=== PATIENT | female | born 1980 | race Caucasian/White ===

== ENCOUNTER 2018-10-12 09:35 | Day surgery (SDC) | payer BC ==
--- NOTE | 2018-10-07 16:41 | RAD REPORT ---
EXAM DESCRIPTION: RAD - Chest Pa And Lat (2 Views) - 10/07/2018 4:28 pm CLINICAL HISTORY: preop Chest pain. COMPARISON: No comparisons FINDINGS: The lungs are clear. The heart is normal in size. No displaced fractures. IMPRESSION: No acute or concerning finding suspected.
[2018-10-07 16:43] LABS: Absolute Lymphocytes (CBC) 2.4 K/uL (0.7-4.9); Absolute Monocytes 0.7 K/uL (0.1-1.3); Absolute Neutrophil 5.9 K/uL (1.8-8.0); Basophils % 1.3 % (0-1.3); Eosinophils % 2.1 % (0-4.4); Hematocrit 41.9 % (36.0-45.0); Lymphocytes % 26.1 % (15.3-44.8); MPV 9.9 fL (7.6-11.3); Monocytes % 7.1 % (3.3-12.3)
--- NOTE | 2018-10-07 16:44 | EKG ---
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
[2018-10-12] MEDS ORDERED: Ringers Lactate 1,000 ML IV ONE (10:12)
--- NOTE | 2018-10-12 10:19 | P.OBGYNHP ---
Certification for Inpatient Patient will require the following post-hospital care: None Practitioner: I am a practitioner with admitting privileges, knowledge of patient current condition, hospital course, and medical plan of care. Services: Services provided to patient in accordance with Admission requirements found in Title 42 Section 412.3 of the Code of Federal Regulations Patient History Date of Service: 10/12/18 Reason for admission: D&C hysteroscopy & endometrial ablation (novasure) History of Present Illness: Patient is a 38 y/o LMP 09/30/2018 who presents for heavy bleeding. She states that her menstrual cycle so heavy. Patient is also c/o painful menses. Patient has been evaluated for and has requested to have endometrial ablation done. Ultrasound and endometrial biopsy were performed and were normal. Allergies No Known Allergies Allergy (Verified 10/07/18 16:12) Home Medications: ALPRAZolam [Alprazolam] 0.5 mg PO DAILY 01/23/17 Sertraline [Zoloft*] 50 mg PO DAILY 01/23/17 Thyroid Tab [[place] Thyroid*] 60 mg PO DAILY 01/23/17 Lisinopril [Prinivil*] 5 mg PO [id number] 10/07/18 hydroCHLOROthiazide [Hydrochlorothiazide*] 12.5 mg PO DAILY 10/07/18 - Past Medical/Surgical History Diabetic: No -: HTN -: Hypothyroidism -: Anxiety -: PTSD -: Rectal tear -: Obesity -: D&C -: Breast Implants -: Tubal ligation Psychosocial/ Personal History: She is 4 years, she has 5 children. 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 - Family History Father -: Heart disease, Hypertension, Stroke Mother -: Hypertension, Diabetes, Cancer Notes: non-hodgkins lymphoma Brother -: Hypertension Sister -: Hypertension - Social History Alcohol use: No CD- Drugs: No Caffeine use: Yes Physical Examination - General General: Alert, Oriented x3 HEENT: Atraumatic Neck: Supple Respiratory: Normal air movement Cardiovascular: No edema, Normal pulses Gastrointestinal: Normal bowel sounds, Soft and benign Musculoskeletal: No clubbing, No swelling Integumentary: No rashes Neurological: Normal gait, Normal speech - Female Pelvic External genitalia: Normal Vagina: Normal, [place], Moist, Smooth Cervix: Normal, Non-tender, No discharge Uterus: Non-gravid, Smooth contour, Mobile Adnexa: Normal, Non-tender Imagings Data: COMPARISON: Pelvic ultrasound August 2017 TECHNIQUE: Endovaginal sonography was performed. FINDINGS: Nabothian cysts in the cervix are noted and similar to the comparison 1 year earlier. There is a coarsened, increased echogenicity of the myometrium similar to the prior study. No myometrial mass identifiable. Homogeneous endometrial tissue is identifiable up to 9 mm in maximum thickness. No endometrial mass or polyp identified. The endometrium - myometrium interface is normal. Uterus is 8.7 x 5.3 x 6.2 cm. A 2.7 centimeter right ovarian cyst is present. No suspicious characteristics seen. No right adnexal mass identified. Left ovary could not be visualized. No left adnexal mass. No blood or fluid in the cul-de-sac. IMPRESSION: No uterine abnormality identified. No significant change from 1 year earlier. A right ovarian 2.7 cm cyst identified with no suspicious characteristics. No right adnexal abnormality. Nonvisualization of the left ovary with no left adnexal abnormality seen. Assessment and Plan - Plan 38 y/o LMP 09/30/2018 who has menorrhagia. Plan is to perform D&C hysteroscopy and novasure endometrial ablation. - Advance Directives Does patient have a Living Will: No Does patient have a Durable POA for Healthcare: No
[2018-10-12] MEDS ORDERED: FENTANYL CITR 100 MCG/2 ML ONE (10:39)
[2018-10-12] MEDS ORDERED: LIDOCAINE 1% MPF 5 ML VIAL ONE (10:39)
[2018-10-12] MEDS ORDERED: MIDAZOLAM HCL 2 MG/2 ML INJ ONE (10:39)
[2018-10-12] MEDS ORDERED: PROPOFOL 200 MG/20 ML VIAL IV ONE (10:39)
[2018-10-12] MEDS ORDERED: SILVER NITRATE 1 APPL TOP ONE ×2 (10:47→11:51)
[2018-10-12] MEDS ORDERED: DEXAMETHASONE 4 MG/ML VIAL ONE (11:21)
[2018-10-12] MEDS ORDERED: ONDANSETRON 4 MG/2 ML VIAL ONE (11:22)
[2018-10-12] MEDS ORDERED: KETOROLAC 30 MG/ML INJ ONE (11:22)
[2018-10-12] MEDS ORDERED: ONDANSETRON 4 MG (ODT) TAB PO PRN (11:38)
[2018-10-12] MEDS ORDERED: IBUPROFEN 400 MG TAB PO PRN (11:38)
[2018-10-12] MEDS ORDERED: KETOROLAC 30 MG/ML INJ IV PRN (11:38)
--- NOTE | 2018-10-12 11:38 | P.OP ---
Measurement Operator: NONE,NONE Preoperative diagnosis: abnormal uterine bleeding Postoperative diagnosis: same Primary procedure: D&C, hysteroscopy, endometrial ablation Secondary procedure: none Anesthesia: General Estimated blood loss: none Specimen: endometrial curettings Operative Technique: The patient was taken to the operating room, where general anesthesia was found to be adequate. She was prepped and draped in the usual sterile fashion. A speculum was placed into the vagina. The anterior lip of the cervix was grasped with a single-tooth tenaculum, The cervix was minimally dilated with #17 Hanks dilator. The 5-mm 30-degree hysteroscope was then inserted under direct visualization using lactated Ringer' s as a distention medium. The uterine cavity was viewed and fluffy white endometrium was seen without masses. The hysteroscope was then removed and the NovaSure ablation was performed. The uterus was then sounded to 8cm. Width was set at 4.5 cm. Power was at 161 and the full cycle was 52 seconds. After the cycle was complete, the device was withdrawn. The tenaculum was removed. Bleeding was controlled with silver nitrite and pressure. The patient was then awakened, transferred, and taken to the recovery room in satisfactory condition. Complications: None Transferred to: Recovery Room Condition: Good
[2018-10-12] MEDS ORDERED: PROMETHAZINE 25 MG/ML VIAL ONE (11:57)
[2018-10-12] MEDS ORDERED: ALBUTEROL INHALER 60 PUFF/8 GM IH ONE (11:57)
[2018-10-12] MEDS ORDERED: MEPERIDINE HCL 25 MG/0.5 ML ONE (11:57)
== END 2018-10-12 14:20 | disposition home or self-care (01) ==
LOC: OR 09:35
PROVIDERS: ATTEND Student in an Organized Health Care Education/Training Program
PROC: 0U5B8ZZ Destruction of Endometrium, Via Natural or Artificial Opening Endoscopic (ICD-10-PCS; principal; 2018-10-12 10:45)
PROC: 0UDB8ZX Extraction of Endometrium, Via Natural or Artificial Opening Endoscopic, Diagnostic (ICD-10-PCS; 2018-10-12 10:45)
DX: N92.0 Excessive and frequent menstruation with regular cycle (principal); E28.2 Polycystic ovarian syndrome; E03.9 Hypothyroidism, unspecified; I10 Essential (primary) hypertension; F41.9 Anxiety disorder, unspecified; F32.9 Major depressive disorder, single episode, unspecified; F43.10 Post-traumatic stress disorder, unspecified; Z79.899 Other long term (current) drug therapy
CPT/HCPCS: 36415; 71046; 81025; 85025; 86850; 86900; 86901; 88305; 93005; J2175; J2250; J2405; J2550; J2704; J3010

== ENCOUNTER 2018-10-18 14:55 | Emergency (ER) | payer BC ==
[2018-10-18] MEDS ORDERED: NA CHLORIDE 0.9% 1,000 ML ONE (16:13)
--- NOTE | 2018-10-18 16:29 | RAD REPORT ---
EXAM DESCRIPTION: Abdullahi Dunbar (2 Views)10/18/2018 4:18 pm CLINICAL HISTORY: Cough COMPARISON: October 07, 2018 FINDINGS: The lungs appear clear of acute infiltrate. The heart is normal size IMPRESSION: No acute abnormalities displayed
[2018-10-18 16:46] LABS: Absolute Lymphocytes (CBC) 2.8 K/uL (0.7-4.9); Absolute Monocytes 0.6 K/uL (0.1-1.3); Absolute Neutrophil 8.8 K/uL (1.8-8.0); Basophils % 0.8 % (0-1.3); Eosinophils % 1.6 % (0-4.4); Hematocrit 46.3 % (36.0-45.0); MPV 10.6 fL (7.6-11.3); Monocytes % 5.1 % (3.3-12.3); RBC Red Blood Cell Count 4.86 M/uL (3.86-4.86)
[2018-10-18 17:01] LABS: Albumin 3.8 g/dL (3.4-5.0); Bilirubin Total 0.4 mg/dL (0.2-1.0); Potassium 3.9 mmol/L (3.5-5.1); Protein, Total 7.6 g/dL (6.4-8.2)
--- NOTE | 2018-10-18 17:14 | EDPHYS ---
Physician Documentation [facility] Name: Kristin Haines Age: 38 yrs Sex: Female : 1980 Arrival Date: 10/18/2018 Time: 14:56 Bed 5 Private MD: Virginia Agrawal ED Physician Gerardo Zhang HPI: 10/18 15:29 This 38 yrs old Female presents to ER via Unassigned with complaints of angelina Nausea, Dizziness, InQuicker. 15:29 The patient presents to the emergency department with nausea. Onset: The angelina symptoms/episode began/occurred 5 day(s) ago. Possible causes: unknown. The symptoms are aggravated by nothing. Associated signs and symptoms: The patient has no apparent associated signs or symptoms. Severity of symptoms: At their worst the symptoms were moderate in the emergency department the symptoms are unchanged. The patient has not experienced similar symptoms in the past. 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 - Social history:: Smoking status: Patient/guardian denies using tobacco. - Ebola Screening: : Patient negative for fever greater than or equal to 101.5 degrees Fahrenheit, and additional compatible Ebola Virus Disease symptoms Patient denies exposure to infectious person Patient denies travel to an Ebola-affected area in the 21 days before illness onset No symptoms or risks identified at this time. - Family history:: not pertinent. ROS: 15:29 Constitutional: Negative for fever, chills, and weight loss, Eyes: Negative for injury, angelina pain, redness, and discharge, ENT: Negative for injury, pain, and discharge, Neck: Negative for injury, pain, and swelling, Cardiovascular: Negative for chest pain, palpitations, and edema, Respiratory: Negative for shortness of breath, cough, wheezing, and pleuritic chest pain, Abdomen/GI: Negative for abdominal pain, nausea, vomiting, diarrhea, and constipation, Back: Negative for injury and pain, : Negative for injury, bleeding, discharge, and swelling, MS/Extremity: Negative for injury and deformity, Skin: Negative for injury, rash, and discoloration, Psych: Negative for depression, anxiety, suicide ideation, homicidal ideation, and hallucinations, Allergy/Immunology: Negative for hives, rash, and allergies, Endocrine: Negative for neck swelling, polydipsia, polyuria, polyphagia, and marked weight changes, Hematologic/Lymphatic: Negative for swollen nodes, abnormal bleeding, and unusual bruising. 15:29 Neuro: Positive for dizziness, weakness. Exam: 15:29 Constitutional: This is a well developed, well nourished patient who is awake, alert, angelina and in no acute distress. Head/Face: Normocephalic, atraumatic. Eyes: Pupils equal round and reactive to light, extra-ocular motions intact. Lids and lashes normal. Conjunctiva and sclera are non-icteric and not injected. Cornea within normal limits. Periorbital areas with no swelling, redness, or edema. ENT: Nares patent. No nasal discharge, no septal abnormalities noted. Tympanic membranes are normal and external auditory canals are clear. Oropharynx with no redness, swelling, or masses, exudates, or evidence of obstruction, uvula midline. Mucous membranes moist. Neck: Trachea midline, no thyromegaly or masses palpated, and no cervical lymphadenopathy. Supple, full range of motion without nuchal rigidity, or vertebral point tenderness. No Meningismus. Chest/axilla: Normal chest wall appearance and motion. Nontender with no deformity. No lesions are appreciated. Cardiovascular: Regular rate and rhythm with a normal S1 and S2. No gallops, murmurs, or rubs. Normal PMI, no JVD. No pulse deficits. Respiratory: Lungs have equal breath sounds bilaterally, clear to auscultation and percussion. No rales, rhonchi or wheezes noted. No increased work of breathing, no retractions or nasal flaring. Abdomen/GI: Soft, non-tender, with normal bowel sounds. No distension or tympany. No guarding or rebound. No evidence of tenderness throughout. Back: No spinal tenderness. No costovertebral tenderness. Full range of motion. Female : Normal external genitalia. Skin: Warm, dry with normal turgor. Normal color with no rashes, no lesions, and no evidence of cellulitis. MS/ Extremity: Pulses equal, no cyanosis. Neurovascular intact. Full, normal range of motion. Neuro: Awake and alert, GCS 15, oriented to person, place, time, and situation. Cranial nerves II-XII grossly intact. Motor strength 5/5 in all extremities. Sensory grossly intact. Cerebellar exam normal. Normal gait. Psych: Awake, alert, with orientation to person, place and time. Behavior, mood, and affect are within normal limits. 15:31 Musculoskeletal/extremity: DVT Exam: No signs of deep vein thrombosis. no pain, no angelina swelling, no tenderness, negative Homans' sign noted on exam, no appreciated bluish discoloration, no erythema, no increased warmth. Vital Signs: 15:24 BP 151 / 98; Pulse 67; Resp 16; Temp 98.8; Pulse Ox 99% on R/A; Weight 69.85 kg; Height ch 5 ft. 5 in. (165.10 cm); Pain 0/10; 15:30 BP 134 / 84 LA Supine (auto/reg); Pulse 67; ch 15:32 BP 126 / 86 LA Sitting (auto/reg); Pulse 77; ch 15:34 BP 130 / 87 LA Standing (auto/reg); Pulse 75; ch 16:30 BP 124 / 78; Pulse 64; Resp 16; Pulse Ox 98% on R/A; Pain 0/10; ch 17:25 BP 127 / 75; Pulse 58; Resp 16; Temp 98.8; Pulse Ox 99% on R/A; Pain 0/10; ch 15:24 Body Mass Index 25.63 (69.85 kg, 165.10 cm) MDM: 15:[address] [facility] 15:[address] Patient medically screened[address] [facility] 15:29 Data reviewed: vital signs, nurses notes, lab test result(s), radiologic studies, plain angelina films. 10/18 15:29 Order name: CBC with Diff; Complete Time: 17:[address] [facility] 10/18 15:29 Order name: Comprehensive Metabolic Panel; Complete Time: 17:[address] [facility] 10/18 15:29 Order name: Blood Culture Adult (2) [facility] 10/18 15:29 Order name: Urine Culture [facility] 10/18 15:29 Order name: Procalcitonin; Complete Time: 17:[address] [facility] 10/18 15:29 Order name: Flu [facility] 10/18 15:29 Order name: Urine Dipstick-Ancillary (obtain specimen); Complete Time: 16:[address] [facility] 10/18 15:29 Order name: Chest Pa And Lat (2 Views) XRAY; Complete Time: 16:[address] [facility] 10/18 16:22 Order name: Urine Dipstick--Ancillary (enter results) nm 10/18 17:14 Order name: Orthostatics; Complete Time: 17:[address] [facility] Administered Medications: 16:10 Drug: NS 0.9% 1000 ml Route: IV; Rate: 1 bolus; Site: right antecubital; 17:00 Follow up: IV Status: Completed infusion; IV Intake: 1000ml 17:33 Drug: Rocephin - (cefTRIAXone) 1 grams Route: IVPB; Infused Over: 30 mins; Site: right sg antecubital; 17:44 Follow up: IV Status: Completed infusion; IV Intake: 10ml Disposition: 10/18/18 17:13 Discharged to Home. Impression: Nausea, Weakness, Dizziness and giddiness, Elevated white blood cell count. - Condition is Stable. - Discharge Instructions: Dizziness, Nausea and Vomiting, Adult, Nausea, Adult, Weakness, Fatigue, Weakness, [id number], Dizziness, [id number]. - Prescriptions for Zofran 4 mg Oral Tablet - take 1 tablet by ORAL route every 12 hours As needed; 14 tablet. Doxycycline Hyclate 100 mg Oral Tablet - take 1 tablet by ORAL route every 12 hours; 14 tablet. - Medication Reconciliation Form, Thank You Letter, Antibiotic Education, Prescription Opioid Use form. - Follow up: Mini Rekhi; When: 1 - 2 days; Reason: Recheck today's complaints, Continuance of care, Re-evaluation by your physician. - Problem is new. - Symptoms have improved. Signatures: Dispatcher [employer] Luz Casas RN RN Cristiano Pang RN RN Gerardo Dhaliwal MD MD cha Corrections: (The following items were deleted from the chart) 17:45 17:13 10/18/2018 17:13 Discharged to Home. Impression: Nausea; Weakness; Dizziness and ch giddiness; Elevated white blood cell count. Condition is Stable. Discharge Instructions: Dizziness, Nausea and Vomiting, Adult, Nausea, Adult, Weakness, Fatigue, Weakness, [id number], Dizziness, [id number]. Prescriptions for Zofran 4 mg Oral Tablet - take 1 tablet by ORAL route every 12 hours As needed; 14 tablet. and Forms are Medication Reconciliation Form, Thank You Letter, Antibiotic Education, Prescription Opioid Use. Follow up: Virginia Agrawal; When: 1 - 2 days; Reason: Recheck today's complaints, Continuance of care, Re-evaluation by your physician. Problem is new. Symptoms have improved. angelina
--- NOTE | 2018-10-18 17:14 | ER ---
Nurse's Notes [facility] Name: Kristin Haines Age: 38 yrs Sex: Female : 1980 Arrival Date: 10/18/2018 Time: 14:56 Bed 5 Private MD: Virginia Agrawal Diagnosis: Nausea;Weakness;Dizziness and giddiness;Elevated white blood cell count Presentation: 10/18 15:10 Presenting complaint: Patient states: Reports having Uterine ablation surgery with sg , reports has been having weakness and body aches as well as pelvic pain, reports N/V/D/ unsure if any fever. 15:10 Method Of Arrival: Ambulatory sg 15:10 Transition of care: patient was not received from another setting of care. Onset of sg symptoms was October 18, 2018. Risk Assessment: Do you want to hurt yourself or someone else? Patient reports no desire to harm self or others. Initial Sepsis Screen: Does the patient meet any 2 criteria? No. Patient's initial sepsis screen is negative. Does the patient have a suspected source of infection? No. Patient's initial sepsis screen is negative. Care prior to arrival: None. 16:09 Acuity: MATT 3 sg Triage Assessment: 15:24 General: Appears in no apparent distress. uncomfortable, Behavior is calm, cooperative, ch appropriate for age. Pain: Denies pain. Neuro: No deficits noted. Neuro: Reports dizziness, weakness states when she changes positions she feels dizzy and light headed, when she is active she feels worse, very tired all over, states she just doesn't feel well. . Respiratory: Airway is patent is compromised Trachea midline Respiratory effort is even, unlabored. GI: Abdomen is flat, non-distended, Bowel sounds present X 4 quads. Abd is soft and non tender X 4 quads. Reports diarrhea, nausea. Derm: Skin is pink, warm \\T\\ dry. 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 - Social history:: Smoking status: Patient/guardian denies using tobacco. - Ebola Screening: : Patient negative for fever greater than or equal to 101.5 degrees Fahrenheit, and additional compatible Ebola Virus Disease symptoms Patient denies exposure to infectious person Patient denies travel to an Ebola-affected area in the 21 days before illness onset No symptoms or risks identified at this time. - Family history:: not pertinent. Screenin:34 Abuse screen: Denies threats or abuse. Denies injuries from another. Nutritional ch screening: No deficits noted. Tuberculosis screening: No symptoms or risk factors identified. Fall Risk None identified. Assessment: 15:33 General: Appears in no apparent distress. comfortable, Behavior is calm, cooperative, ch appropriate for age. Respiratory: Airway is patent Respiratory effort is even, unlabored. GI: Abdomen is flat, Bowel sounds present X 4 quads. Abd is soft and non tender X 4 quads. : Reports discharge, from vagina that is white, yellow. Derm: Skin is dry, Skin is pale, Skin temperature is warm. 16:17 Reassessment: Patient appears in no apparent distress at this time. Patient and/or ch family updated on plan of care and expected duration. Pain level reassessed. pt in imaging, awaiting return. 17:25 Reassessment: Patient appears in no apparent distress at this time. Patient and/or ch family updated on plan of care and expected duration. Pain level reassessed. Patient is alert, oriented x 3, equal unlabored respirations, skin warm/dry/pink. erp in room discussing results with pt. then pt will be discharged. Patient denies pain at this time. 17:43 Reassessment: Patient appears in no apparent distress at this time. Patient and/or ch family updated on plan of care and expected duration. Pain level reassessed. Patient is alert, oriented x 3, equal unlabored respirations, skin warm/dry/pink. Patient states feeling better. Patient states symptoms have improved. Vital Signs: 15:24 BP 151 / 98; Pulse 67; Resp 16; Temp 98.8; Pulse Ox 99% on R/A; Weight 69.85 kg; Height ch 5 ft. 5 in. (165.10 cm); Pain 0/10; 15:30 BP 134 / 84 LA Supine (auto/reg); Pulse 67; ch 15:32 BP 126 / 86 LA Sitting (auto/reg); Pulse 77; ch 15:34 BP 130 / 87 LA Standing (auto/reg); Pulse 75; ch 16:30 BP 124 / 78; Pulse 64; Resp 16; Pulse Ox 98% on R/A; Pain 0/10; ch 17:25 BP 127 / 75; Pulse 58; Resp 16; Temp 98.8; Pulse Ox 99% on R/A; Pain 0/10; ch 15:24 Body Mass Index 25.63 (69.85 kg, 165.10 cm) ED Course: 14:56 Patient arrived in ED. as 14:56 Virginia Agrawal MD is Private Physician. as 15:07 Arm band placed on. sg 15:22 Gerardo Zhang MD is Attending Physician. angelina 15:24 Luz Ricardo, ROSIE is Primary Nurse. ch 15:34 Patient has correct armband on for positive identification. Call light in reach. Side ch rails up X 1. Pulse ox on. NIBP on. Warm blanket given. Verbal reassurance given. 16:09 Triage completed. sg 16:10 Initial lab(s) drawn, by in, sent to lab. First set of blood cultures drawn by in, [facility] Urine collected: clean catch specimen, clear. Inserted saline lock: 20 gauge in right antecubital area, using aseptic technique. Blood collected. 16:16 Chest Pa And Lat (2 Views) XRAY In Process Unspecified. EDMS 16:28 Flu and/or RSV swab sent to lab. [facility] 16:30 No provider procedures requiring assistance completed. ch 17:13 Virginia Agrawal MD is Referral Physician. angelina 17:44 IV discontinued, intact, bleeding controlled, No redness/swelling at site. Pressure ch dressing applied. Administered Medications: 16:10 Drug: NS 0.9% 1000 ml Route: IV; Rate: 1 bolus; Site: right antecubital; 17:00 Follow up: IV Status: Completed infusion; IV Intake: 1000ml ch 17:33 Drug: Rocephin - (cefTRIAXone) 1 grams Route: IVPB; Infused Over: 30 mins; Site: right sg antecubital; 17:44 Follow up: IV Status: Completed infusion; IV Intake: 10ml Intake: 17:00 IV: 1000ml; Total: 1000ml. 17:44 IV: 10ml; Total: 1010ml. Outcome: 17:13 Discharge ordered by . angelina 17:43 Discharged to home ambulatory, with family. 17:43 Condition: stable 17:43 Discharge instructions given to patient, family, Instructed on discharge instructions, follow up and referral plans. medication usage, Demonstrated understanding of instructions, follow-up care, medications, Prescriptions given X 2. 17:45 Patient left the ED. Signatures: Dispatcher [employer] Luz Casas RN RN Cristiano Sanford RN RN sg Anderson, Corey, MD MD cha Martinez, Shanna Waddell, [place] [id number]
[2018-10-18] MEDS ORDERED: CEFTRIAXONE/SWI 1gm 1 GM/10 ML SYR ONE (17:46)
[2018-10-18 20:39] LABS: Urine Blood TRACE (NEG); Urine Glucose NEGATIVE (NEG); Urine Protein NEGATIVE (NEG)
== END 2018-10-18 17:45 | disposition home or self-care (01) ==
LOC: ER 14:55
DX: D72.829 Elevated white blood cell count, unspecified (principal); R11.0 Nausea; R42 Dizziness and giddiness; F41.9 Anxiety disorder, unspecified; I10 Essential (primary) hypertension; E03.9 Hypothyroidism, unspecified; R53.1 Weakness
CPT/HCPCS: 36415; 71046; 80053; 81003; 84145; 85025; 87040; 87086; 87088; 87804; 96361; 96374; 99284; J0696; J7030